=== PATIENT | female | born 1955 | race Two or more races ===

== ENCOUNTER 2020-10-24 09:00 | Outpatient (CLI) | payer MEDICARE, OTHER ==
[2020-10-24] MEDS ORDERED: LIDOCAINE SOLN 4% 50 ML BOTTLE ONE (09:27)
[2020-10-24] MEDS ORDERED: CLOTRIMAZOLE 1% 15 GM TUBE TP ONE (10:16)
[2020-10-24] MEDS ORDERED: UREA 10% -AHA 4% CREAM 57 GM TUBE ONE (10:16)
[2020-10-24] MEDS ORDERED: COLLAGENASE 5 GM TUBE UD TP ONE (10:17)
== END 2020-10-24 23:59 | disposition home health service (06) ==
LOC: WOU 09:00
PROVIDERS: ATTEND Podiatrist Foot & Ankle Surgery
DX: E11.621 Type 2 diabetes mellitus with foot ulcer (principal); L97.522 Non-pressure chronic ulcer of other part of left foot with fat layer exposed; Z79.84 Long term (current) use of oral hypoglycemic drugs; L03.116 Cellulitis of left lower limb; L84 Corns and callosities; M79.672 Pain in left foot; M79.671 Pain in right foot
CPT/HCPCS: 11042; 11045

== ENCOUNTER 2020-10-24 13:45 | Outpatient (CLI) | payer MEDICARE, OTHER | END 2020-10-24 23:59 | disposition home or self-care (01) | LOC: WOU 13:45 | PROVIDERS: ATTEND Radiology Diagnostic Radiology | DX: Z45.2 Encounter for adjustment and management of vascular access device (principal); L03.116 Cellulitis of left lower limb | CPT/HCPCS: 36569; C1751; 11042; 11045 ==

== ENCOUNTER 2020-10-31 10:00 | Outpatient (CLI) | payer MEDICARE, OTHER ==
[2020-10-31] MEDS ORDERED: LIDOCAINE SOLN 4% 50 ML BOTTLE ONE (10:24)
[2020-10-31] MEDS ORDERED: UREA 10% -AHA 4% CREAM 57 GM TUBE ONE ×2 (10:55→11:13)
[2020-10-31] MEDS ORDERED: CLOTRIMAZOLE 1% 15 GM TUBE TP ONE (10:55)
[2020-10-31] MEDS ORDERED: MUPIROCIN 2% CREAM 15 GM TUBE TP ONE (10:56)
[2020-10-31] MEDS ORDERED: HYDROCORTISONE 1% CREAM 28.35 GM TUBE TP ONE (11:13)
== END 2020-10-31 23:59 | disposition home health service (06) ==
LOC: WOU 10:00
PROVIDERS: ATTEND Podiatrist Foot & Ankle Surgery
DX: E11.621 Type 2 diabetes mellitus with foot ulcer (principal); L97.522 Non-pressure chronic ulcer of other part of left foot with fat layer exposed; L03.116 Cellulitis of left lower limb; L84 Corns and callosities; B35.1 Tinea unguium; M79.672 Pain in left foot; M79.671 Pain in right foot; Z79.84 Long term (current) use of oral hypoglycemic drugs; C52 Malignant neoplasm of vagina
CPT/HCPCS: 11042

== ENCOUNTER 2020-11-07 09:00 | Outpatient (CLI) | payer MEDICARE, OTHER ==
[2020-11-07] MEDS ORDERED: LIDOCAINE SOLN 4% 50 ML BOTTLE ONE (09:35)
== END 2020-11-07 23:59 | disposition home health service (06) ==
LOC: WOU 09:00
PROVIDERS: ATTEND Podiatrist Foot & Ankle Surgery
DX: E11.621 Type 2 diabetes mellitus with foot ulcer (principal); L97.422 Non-pressure chronic ulcer of left heel and midfoot with fat layer exposed; L03.116 Cellulitis of left lower limb; M79.672 Pain in left foot; M79.671 Pain in right foot; B35.1 Tinea unguium; L84 Corns and callosities; Z79.84 Long term (current) use of oral hypoglycemic drugs
CPT/HCPCS: 11042; 11045

== ENCOUNTER 2020-11-10 10:30 | Outpatient (CLI) | payer MEDICARE, OTHER | END 2020-11-10 23:59 | disposition home or self-care (01) | LOC: WOU 10:30 | PROVIDERS: ATTEND Podiatrist Foot & Ankle Surgery | DX: Z45.2 Encounter for adjustment and management of vascular access device (principal); T82.594A Other mechanical complication of infusion catheter, initial encounter; E11.621 Type 2 diabetes mellitus with foot ulcer; L97.422 Non-pressure chronic ulcer of left heel and midfoot with fat layer exposed; L03.116 Cellulitis of left lower limb; B35.1 Tinea unguium; L84 Corns and callosities; M79.672 Pain in left foot; M79.671 Pain in right foot | CPT/HCPCS: G0463 ==

== ENCOUNTER 2020-11-14 10:05 | Outpatient (CLI) | payer MEDICARE, OTHER | END 2020-11-14 23:59 | disposition home health service (06) | LOC: WOU 10:05 | PROVIDERS: ATTEND Podiatrist Foot & Ankle Surgery | DX: E11.621 Type 2 diabetes mellitus with foot ulcer (principal); L97.422 Non-pressure chronic ulcer of left heel and midfoot with fat layer exposed; M79.672 Pain in left foot; M79.671 Pain in right foot; L84 Corns and callosities; B35.1 Tinea unguium; Z79.84 Long term (current) use of oral hypoglycemic drugs | CPT/HCPCS: 11042 ==

== ENCOUNTER 2020-11-21 09:30 | Outpatient (CLI) | payer MEDICARE, OTHER ==
[2020-11-21] MEDS ORDERED: LIDOCAINE SOLN 4% 50 ML BOTTLE ONE (09:46)
[2020-11-21] MEDS ORDERED: UREA 10% -AHA 4% CREAM 57 GM TUBE ONE (10:12)
== END 2020-11-21 23:59 | disposition home health service (06) ==
LOC: WOU 09:30
PROVIDERS: ATTEND Podiatrist Foot & Ankle Surgery
DX: E11.621 Type 2 diabetes mellitus with foot ulcer (principal); L97.422 Non-pressure chronic ulcer of left heel and midfoot with fat layer exposed; L84 Corns and callosities; B35.1 Tinea unguium; Z79.84 Long term (current) use of oral hypoglycemic drugs
CPT/HCPCS: 11042; 11045

== ENCOUNTER 2020-11-26 10:05 | Outpatient (CLI) | payer MEDICARE, OTHER | END 2020-11-26 23:59 | disposition home health service (06) | LOC: WOU 10:05 | PROVIDERS: ATTEND Specialist | DX: E11.621 Type 2 diabetes mellitus with foot ulcer (principal); L97.422 Non-pressure chronic ulcer of left heel and midfoot with fat layer exposed; Z79.84 Long term (current) use of oral hypoglycemic drugs; L03.116 Cellulitis of left lower limb; L84 Corns and callosities; C15.9 Malignant neoplasm of esophagus, unspecified; M79.672 Pain in left foot; M79.671 Pain in right foot | CPT/HCPCS: G0463 ==

== ENCOUNTER → 2020-11-28 | Outpatient (CLI) | payer MEDICARE, OTHER | END | disposition home health service (06) | LOC: WOU 09:15 | PROVIDERS: ATTEND Podiatrist Foot & Ankle Surgery | DX: E11.621 Type 2 diabetes mellitus with foot ulcer (principal); L97.422 Non-pressure chronic ulcer of left heel and midfoot with fat layer exposed; L03.116 Cellulitis of left lower limb; S90.812A Abrasion, left foot, initial encounter; X58.XXXA Exposure to other specified factors, initial encounter; Y92.89 Other specified places as the place of occurrence of the external cause; B35.1 Tinea unguium; L84 Corns and callosities; Z79.84 Long term (current) use of oral hypoglycemic drugs | CPT/HCPCS: 11042 ==

== ENCOUNTER 2020-12-05 09:45 | Outpatient (CLI) | payer MEDICARE, OTHER ==
[2020-12-05] MEDS ORDERED: LIDOCAINE SOLN 4% 50 ML BOTTLE ONE (10:15)
[2020-12-05] MEDS ORDERED: HYDROCORTISONE 1% CREAM 28.35 GM TUBE TP ONE (10:51)
[2020-12-05 11:28] LABS: C-REACTIVE PROTEIN 1.8 mg/dL (0.0-0.9)
== END 2020-12-05 23:59 | disposition home health service (06) ==
LOC: WOU 09:45
PROVIDERS: ATTEND Podiatrist Foot & Ankle Surgery
DX: E11.621 Type 2 diabetes mellitus with foot ulcer (principal); L97.422 Non-pressure chronic ulcer of left heel and midfoot with fat layer exposed; L97.522 Non-pressure chronic ulcer of other part of left foot with fat layer exposed; E11.52 Type 2 diabetes mellitus with diabetic peripheral angiopathy with gangrene; Z79.4 Long term (current) use of insulin; S90.812A Abrasion, left foot, initial encounter; X58.XXXA Exposure to other specified factors, initial encounter; Y92.89 Other specified places as the place of occurrence of the external cause; L84 Corns and callosities
CPT/HCPCS: 11042; 36415; 82040-TC; 85652-TC; 86140-TC

== ENCOUNTER 2020-12-12 11:40 | Outpatient (CLI) | payer MEDICARE, OTHER | END 2020-12-12 23:59 | disposition home health service (06) | LOC: WOU 11:40 | PROVIDERS: ATTEND Podiatrist Foot & Ankle Surgery | DX: E11.621 Type 2 diabetes mellitus with foot ulcer (principal); L97.422 Non-pressure chronic ulcer of left heel and midfoot with fat layer exposed; L97.522 Non-pressure chronic ulcer of other part of left foot with fat layer exposed; E11.52 Type 2 diabetes mellitus with diabetic peripheral angiopathy with gangrene; I96 Gangrene, not elsewhere classified; Z79.84 Long term (current) use of oral hypoglycemic drugs; B35.1 Tinea unguium; L84 Corns and callosities | CPT/HCPCS: C5275; Q4117 ==

== ENCOUNTER 2020-12-19 08:40 | Outpatient (CLI) | payer MEDICARE, OTHER | END 2020-12-19 23:59 | disposition home health service (06) | LOC: WOU 08:40 | PROVIDERS: ATTEND Podiatrist Foot & Ankle Surgery | DX: E11.621 Type 2 diabetes mellitus with foot ulcer (principal); L97.522 Non-pressure chronic ulcer of other part of left foot with fat layer exposed; L97.422 Non-pressure chronic ulcer of left heel and midfoot with fat layer exposed; E11.52 Type 2 diabetes mellitus with diabetic peripheral angiopathy with gangrene; Z79.84 Long term (current) use of oral hypoglycemic drugs; B35.1 Tinea unguium; L84 Corns and callosities | CPT/HCPCS: 11042 ==

== ENCOUNTER 2020-12-26 11:31 | Outpatient (CLI) | payer MEDICARE, OTHER | END 2020-12-26 23:59 | disposition home health service (06) | LOC: WOU 11:31 | PROVIDERS: ATTEND Podiatrist Foot & Ankle Surgery | DX: E11.621 Type 2 diabetes mellitus with foot ulcer (principal); L97.422 Non-pressure chronic ulcer of left heel and midfoot with fat layer exposed; L97.522 Non-pressure chronic ulcer of other part of left foot with fat layer exposed; E11.52 Type 2 diabetes mellitus with diabetic peripheral angiopathy with gangrene; Z79.84 Long term (current) use of oral hypoglycemic drugs; L84 Corns and callosities; B35.1 Tinea unguium | CPT/HCPCS: 11042 ==

== ENCOUNTER 2020-12-31 11:50 | Outpatient (CLI) | payer MEDICARE, OTHER ==
[2020-12-31] MEDS ORDERED: SILVER SULFADIAZINE CREAM 25 GM TUBE ONE (11:58)
== END 2020-12-31 23:59 | disposition home health service (06) ==
LOC: WOU 11:50
PROVIDERS: ATTEND Specialist
DX: T23.231D Burn of second degree of multiple right fingers (nail), not including thumb, subsequent encounter (principal); T31.0 Burns involving less than 10% of body surface; V00-Y99 External causes of morbidity; E11.52 Type 2 diabetes mellitus with diabetic peripheral angiopathy with gangrene; B35.1 Tinea unguium; L84 Corns and callosities; Z79.84 Long term (current) use of oral hypoglycemic drugs
CPT/HCPCS: G0463

== ENCOUNTER 2021-01-02 11:00 | Outpatient (CLI) | payer MEDICARE, OTHER | END 2021-01-02 23:59 | disposition home health service (06) | LOC: WOU 11:00 | PROVIDERS: ATTEND Podiatrist Foot & Ankle Surgery | DX: E11.621 Type 2 diabetes mellitus with foot ulcer (principal); L97.422 Non-pressure chronic ulcer of left heel and midfoot with fat layer exposed; L97.522 Non-pressure chronic ulcer of other part of left foot with fat layer exposed; E11.52 Type 2 diabetes mellitus with diabetic peripheral angiopathy with gangrene; Z79.84 Long term (current) use of oral hypoglycemic drugs; B35.1 Tinea unguium; L84 Corns and callosities | CPT/HCPCS: 15275; Q4110 ==

== ENCOUNTER 2021-01-07 11:45 | Outpatient (CLI) | payer MEDICARE, OTHER | END 2021-01-07 23:59 | disposition home health service (06) | LOC: WOU 11:45 | PROVIDERS: ATTEND Specialist | DX: T23.221D Burn of second degree of single right finger (nail) except thumb, subsequent encounter (principal); T31.0 Burns involving less than 10% of body surface; V00-Y99 External causes of morbidity; E11.621 Type 2 diabetes mellitus with foot ulcer; L97.422 Non-pressure chronic ulcer of left heel and midfoot with fat layer exposed; E11.52 Type 2 diabetes mellitus with diabetic peripheral angiopathy with gangrene; Z79.84 Long term (current) use of oral hypoglycemic drugs; B35.1 Tinea unguium; L84 Corns and callosities | CPT/HCPCS: G0463 ==

== ENCOUNTER 2021-01-14 10:05 | Outpatient (CLI) | payer MEDICARE, OTHER | END 2021-01-14 23:59 | disposition home or self-care (01) | LOC: WOU 10:05 | PROVIDERS: ATTEND Specialist | DX: E11.621 Type 2 diabetes mellitus with foot ulcer (principal); L97.422 Non-pressure chronic ulcer of left heel and midfoot with fat layer exposed; E11.52 Type 2 diabetes mellitus with diabetic peripheral angiopathy with gangrene; B35.1 Tinea unguium; L84 Corns and callosities; Z79.84 Long term (current) use of oral hypoglycemic drugs | CPT/HCPCS: G0463 ==

== ENCOUNTER 2021-01-16 09:30 | Outpatient (CLI) | payer MEDICARE, OTHER | END 2021-01-16 23:59 | disposition home health service (06) | LOC: WOU 09:30 | PROVIDERS: ATTEND Podiatrist Foot & Ankle Surgery | DX: E11.621 Type 2 diabetes mellitus with foot ulcer (principal); L97.422 Non-pressure chronic ulcer of left heel and midfoot with fat layer exposed; L97.522 Non-pressure chronic ulcer of other part of left foot with fat layer exposed; E11.52 Type 2 diabetes mellitus with diabetic peripheral angiopathy with gangrene; Z79.84 Long term (current) use of oral hypoglycemic drugs; L84 Corns and callosities; B35.1 Tinea unguium | CPT/HCPCS: 11042 ==

== ENCOUNTER 2021-01-23 09:40 | Outpatient (CLI) | payer MEDICARE, OTHER | END 2021-01-23 23:59 | disposition home health service (06) | LOC: WOU 09:40 | PROVIDERS: ATTEND Podiatrist Foot & Ankle Surgery | DX: E11.621 Type 2 diabetes mellitus with foot ulcer (principal); L97.422 Non-pressure chronic ulcer of left heel and midfoot with fat layer exposed; L97.522 Non-pressure chronic ulcer of other part of left foot with fat layer exposed; E11.52 Type 2 diabetes mellitus with diabetic peripheral angiopathy with gangrene; I96 Gangrene, not elsewhere classified; L84 Corns and callosities; B35.1 Tinea unguium; M20.41 Other hammer toe(s) (acquired), right foot; Z79.84 Long term (current) use of oral hypoglycemic drugs | CPT/HCPCS: 11042 ==

== ENCOUNTER 2021-01-30 09:45 | Outpatient (CLI) | payer MEDICARE, OTHER | END 2021-01-30 23:59 | disposition home health service (06) | LOC: WOU 09:45 | PROVIDERS: ATTEND Podiatrist Foot & Ankle Surgery | DX: E11.621 Type 2 diabetes mellitus with foot ulcer (principal); L97.422 Non-pressure chronic ulcer of left heel and midfoot with fat layer exposed; L97.522 Non-pressure chronic ulcer of other part of left foot with fat layer exposed; E11.52 Type 2 diabetes mellitus with diabetic peripheral angiopathy with gangrene; B35.1 Tinea unguium; L84 Corns and callosities; M20.41 Other hammer toe(s) (acquired), right foot; Z79.84 Long term (current) use of oral hypoglycemic drugs | CPT/HCPCS: 15275; Q4196 ==

== ENCOUNTER 2021-02-06 09:40 | Outpatient (CLI) | payer MEDICARE, OTHER | END 2021-02-06 23:59 | disposition home health service (06) | LOC: WOU 09:40 | PROVIDERS: ATTEND Podiatrist Foot & Ankle Surgery | DX: E11.621 Type 2 diabetes mellitus with foot ulcer (principal); L97.422 Non-pressure chronic ulcer of left heel and midfoot with fat layer exposed; E11.52 Type 2 diabetes mellitus with diabetic peripheral angiopathy with gangrene; I96 Gangrene, not elsewhere classified; B35.1 Tinea unguium; L84 Corns and callosities; Z79.84 Long term (current) use of oral hypoglycemic drugs | CPT/HCPCS: 15275; Q4196 ==

== ENCOUNTER 2021-02-13 09:40 | Outpatient (CLI) | payer MEDICARE, OTHER | END 2021-02-13 23:59 | disposition home health service (06) | LOC: WOU 09:40 | PROVIDERS: ATTEND Podiatrist Foot & Ankle Surgery | DX: E11.621 Type 2 diabetes mellitus with foot ulcer (principal); L97.422 Non-pressure chronic ulcer of left heel and midfoot with fat layer exposed; L97.522 Non-pressure chronic ulcer of other part of left foot with fat layer exposed; L84 Corns and callosities; B35.1 Tinea unguium; M20.41 Other hammer toe(s) (acquired), right foot | CPT/HCPCS: 15275; Q4196 ==

== ENCOUNTER 2021-02-20 09:40 | Outpatient (CLI) | payer MEDICARE, OTHER | END 2021-02-20 23:59 | disposition home health service (06) | LOC: WOU 09:40 | PROVIDERS: ATTEND Podiatrist Foot & Ankle Surgery | DX: E11.621 Type 2 diabetes mellitus with foot ulcer (principal); L97.522 Non-pressure chronic ulcer of other part of left foot with fat layer exposed; Z79.84 Long term (current) use of oral hypoglycemic drugs; B35.1 Tinea unguium; M20.41 Other hammer toe(s) (acquired), right foot; L84 Corns and callosities | CPT/HCPCS: 17250; A6209 ==

== ENCOUNTER 2021-02-27 09:35 | Outpatient (CLI) | payer MEDICARE, OTHER | END 2021-02-27 23:59 | disposition home health service (06) | LOC: WOU 09:35 | PROVIDERS: ATTEND Podiatrist Foot & Ankle Surgery | DX: M79.81 Nontraumatic hematoma of soft tissue (principal); L84 Corns and callosities; E11.9 Type 2 diabetes mellitus without complications; Z79.84 Long term (current) use of oral hypoglycemic drugs; B35.1 Tinea unguium; M20.41 Other hammer toe(s) (acquired), right foot; Z86.31 Personal history of diabetic foot ulcer | CPT/HCPCS: 10140; A6209 ==

== ENCOUNTER 2021-03-06 09:40 | Outpatient (CLI) | payer MEDICARE, OTHER | END 2021-03-06 23:59 | disposition home health service (06) | LOC: WOU 09:40 | PROVIDERS: ATTEND Podiatrist Foot & Ankle Surgery | DX: L97.428 Non-pressure chronic ulcer of left heel and midfoot with other specified severity (principal); M79.81 Nontraumatic hematoma of soft tissue; B35.1 Tinea unguium; L84 Corns and callosities; E11.9 Type 2 diabetes mellitus without complications; Z79.84 Long term (current) use of oral hypoglycemic drugs; M20.41 Other hammer toe(s) (acquired), right foot | CPT/HCPCS: A6209; G0463 ==

== ENCOUNTER 2021-03-20 09:30 | Outpatient (CLI) | payer MEDICARE, OTHER | END 2021-03-20 23:59 | disposition home health service (06) | LOC: WOU 09:30 | PROVIDERS: ATTEND Podiatrist Foot & Ankle Surgery | DX: E11.621 Type 2 diabetes mellitus with foot ulcer (principal); L97.428 Non-pressure chronic ulcer of left heel and midfoot with other specified severity; L84 Corns and callosities; M20.41 Other hammer toe(s) (acquired), right foot; B35.1 Tinea unguium; Z79.84 Long term (current) use of oral hypoglycemic drugs | CPT/HCPCS: 11042 ==

== ENCOUNTER 2021-03-27 09:30 | Outpatient (CLI) | payer MEDICARE, OTHER | END 2021-03-27 23:59 | disposition home health service (06) | LOC: WOU 09:30 | PROVIDERS: ATTEND Podiatrist Foot & Ankle Surgery | DX: E11.621 Type 2 diabetes mellitus with foot ulcer (principal); L97.522 Non-pressure chronic ulcer of other part of left foot with fat layer exposed; L84 Corns and callosities; B35.1 Tinea unguium; M20.41 Other hammer toe(s) (acquired), right foot; Z79.84 Long term (current) use of oral hypoglycemic drugs; Z92.21 Personal history of antineoplastic chemotherapy | CPT/HCPCS: 11042 ==

== ENCOUNTER 2021-04-03 08:00 | Outpatient (CLI) | payer MEDICARE, OTHER ==
[2021-04-03] MEDS ORDERED: LIDOCAINE HCL/MPF 1% 30 ML VIAL IJ ONE (08:37)
== END 2021-04-03 23:59 | disposition home health service (06) ==
LOC: WOU 08:00
PROVIDERS: ATTEND Podiatrist Foot & Ankle Surgery
DX: E11.621 Type 2 diabetes mellitus with foot ulcer (principal); L97.522 Non-pressure chronic ulcer of other part of left foot with fat layer exposed; L84 Corns and callosities; M20.41 Other hammer toe(s) (acquired), right foot; M79.81 Nontraumatic hematoma of soft tissue; B35.1 Tinea unguium; S93.145D Subluxation of metatarsophalangeal joint of left lesser toe(s), subsequent encounter; X58.XXXD Exposure to other specified factors, subsequent encounter; Z79.84 Long term (current) use of oral hypoglycemic drugs
CPT/HCPCS: 11042; 28010; J3490

== ENCOUNTER 2021-04-10 11:00 | Outpatient (CLI) | payer MEDICARE, OTHER | END 2021-04-10 23:59 | disposition home health service (06) | LOC: WOU 11:00 | PROVIDERS: ATTEND Podiatrist Foot & Ankle Surgery | DX: E11.621 Type 2 diabetes mellitus with foot ulcer (principal); L97.522 Non-pressure chronic ulcer of other part of left foot with fat layer exposed; S93.145D Subluxation of metatarsophalangeal joint of left lesser toe(s), subsequent encounter; X58.XXXD Exposure to other specified factors, subsequent encounter; B35.1 Tinea unguium; L84 Corns and callosities; M20.41 Other hammer toe(s) (acquired), right foot; M79.81 Nontraumatic hematoma of soft tissue; Z79.84 Long term (current) use of oral hypoglycemic drugs | CPT/HCPCS: 11042; A6197 ==

== ENCOUNTER 2021-04-17 10:30 | Outpatient (CLI) | payer MEDICARE, OTHER | END 2021-04-17 23:59 | disposition home health service (06) | LOC: WOU 10:30 | PROVIDERS: ATTEND Podiatrist Foot & Ankle Surgery | DX: E11.621 Type 2 diabetes mellitus with foot ulcer (principal); L97.523 Non-pressure chronic ulcer of other part of left foot with necrosis of muscle; B35.1 Tinea unguium; L84 Corns and callosities; M20.41 Other hammer toe(s) (acquired), right foot; M79.81 Nontraumatic hematoma of soft tissue; Z79.4 Long term (current) use of insulin | CPT/HCPCS: 11043; 87070-TC; 87075-TC ==

== ENCOUNTER 2021-04-24 10:30 | Outpatient (CLI) | payer MEDICARE, OTHER | END 2021-04-24 23:59 | disposition home health service (06) | LOC: WOU 10:30 | PROVIDERS: ATTEND Podiatrist Foot & Ankle Surgery | DX: E11.621 Type 2 diabetes mellitus with foot ulcer (principal); L97.522 Non-pressure chronic ulcer of other part of left foot with fat layer exposed; L03.116 Cellulitis of left lower limb; L84 Corns and callosities; B35.1 Tinea unguium; M20.41 Other hammer toe(s) (acquired), right foot; S93.145D Subluxation of metatarsophalangeal joint of left lesser toe(s), subsequent encounter; X58.XXXD Exposure to other specified factors, subsequent encounter; Z79.84 Long term (current) use of oral hypoglycemic drugs | CPT/HCPCS: 11042 ==

== ENCOUNTER 2021-05-01 10:30 | Outpatient (CLI) | payer MEDICARE, OTHER | END 2021-05-01 23:59 | disposition home health service (06) | LOC: WOU 10:30 | PROVIDERS: ATTEND Podiatrist Foot & Ankle Surgery | DX: E11.621 Type 2 diabetes mellitus with foot ulcer (principal); L97.422 Non-pressure chronic ulcer of left heel and midfoot with fat layer exposed; Z88.1 Allergy status to other antibiotic agents; Z88.0 Allergy status to penicillin; Z92.21 Personal history of antineoplastic chemotherapy; L84 Corns and callosities; M20.41 Other hammer toe(s) (acquired), right foot; Z86.31 Personal history of diabetic foot ulcer; M79.81 Nontraumatic hematoma of soft tissue; M24.875 Other specific joint derangements left foot, not elsewhere classified; E11.42 Type 2 diabetes mellitus with diabetic polyneuropathy | CPT/HCPCS: 11042; A6197 ==

== ENCOUNTER 2021-05-08 10:35 | Outpatient (CLI) | payer MEDICARE, OTHER | END 2021-05-08 23:59 | disposition home health service (06) | LOC: WOU 10:35 | PROVIDERS: ATTEND Podiatrist Foot & Ankle Surgery | DX: E11.621 Type 2 diabetes mellitus with foot ulcer (principal); L97.422 Non-pressure chronic ulcer of left heel and midfoot with fat layer exposed; Z86.73 Personal history of transient ischemic attack (TIA), and cerebral infarction without residual deficits; Z85.01 Personal history of malignant neoplasm of esophagus; Z92.21 Personal history of antineoplastic chemotherapy; L84 Corns and callosities; E11.40 Type 2 diabetes mellitus with diabetic neuropathy, unspecified; Z79.84 Long term (current) use of oral hypoglycemic drugs | CPT/HCPCS: 11042 ==

== ENCOUNTER 2021-05-15 10:35 | Outpatient (CLI) | payer MEDICARE, OTHER | END 2021-05-15 23:59 | disposition home health service (06) | LOC: WOU 10:35 | PROVIDERS: ATTEND Podiatrist Foot & Ankle Surgery | DX: E11.621 Type 2 diabetes mellitus with foot ulcer (principal); L97.422 Non-pressure chronic ulcer of left heel and midfoot with fat layer exposed; B35.1 Tinea unguium; E11.40 Type 2 diabetes mellitus with diabetic neuropathy, unspecified; M20.41 Other hammer toe(s) (acquired), right foot; Z86.73 Personal history of transient ischemic attack (TIA), and cerebral infarction without residual deficits; Z85.01 Personal history of malignant neoplasm of esophagus; Z92.21 Personal history of antineoplastic chemotherapy; M24.475 Recurrent dislocation, left foot; Z79.84 Long term (current) use of oral hypoglycemic drugs; Z86.31 Personal history of diabetic foot ulcer | CPT/HCPCS: 11042 ==

== ENCOUNTER 2021-05-22 10:30 | Outpatient (CLI) | payer MEDICARE, OTHER ==
[2021-05-22] MEDS ORDERED: LIDOCAINE SOLN 4% 50 ML BOTTLE ONE (10:42)
== END 2021-05-22 23:59 | disposition home health service (06) ==
LOC: WOU 10:30
PROVIDERS: ATTEND Podiatrist Foot & Ankle Surgery
DX: E11.621 Type 2 diabetes mellitus with foot ulcer (principal); L97.522 Non-pressure chronic ulcer of other part of left foot with fat layer exposed; L84 Corns and callosities; B35.1 Tinea unguium; M20.41 Other hammer toe(s) (acquired), right foot; Z79.84 Long term (current) use of oral hypoglycemic drugs
CPT/HCPCS: 11042

== ENCOUNTER 2021-05-29 10:30 | Outpatient (CLI) | payer MEDICARE, OTHER | END 2021-05-29 23:59 | disposition home health service (06) | LOC: WOU 10:30 | PROVIDERS: ATTEND Podiatrist Foot & Ankle Surgery | DX: E11.621 Type 2 diabetes mellitus with foot ulcer (principal); L97.522 Non-pressure chronic ulcer of other part of left foot with fat layer exposed; B35.1 Tinea unguium; L84 Corns and callosities; M20.41 Other hammer toe(s) (acquired), right foot; Z79.84 Long term (current) use of oral hypoglycemic drugs | CPT/HCPCS: 11042; A6197 ==

== ENCOUNTER 2021-06-05 10:30 | Outpatient (CLI) | payer MEDICARE, OTHER ==
[2021-06-05] MEDS ORDERED: SILVER SULFADIAZINE CREAM 25 GM TUBE ONE (11:25)
== END 2021-06-05 23:59 | disposition home health service (06) ==
LOC: WOU 10:30
PROVIDERS: ATTEND Podiatrist Foot & Ankle Surgery
DX: E11.621 Type 2 diabetes mellitus with foot ulcer (principal); L97.522 Non-pressure chronic ulcer of other part of left foot with fat layer exposed; L84 Corns and callosities; B35.1 Tinea unguium; M20.41 Other hammer toe(s) (acquired), right foot; Z79.84 Long term (current) use of oral hypoglycemic drugs
CPT/HCPCS: 11042; A6197

== ENCOUNTER 2021-06-12 10:30 | Outpatient (CLI) | payer MEDICARE, OTHER | END 2021-06-12 23:59 | disposition home health service (06) | LOC: WOU 10:30 | PROVIDERS: ATTEND Podiatrist Foot & Ankle Surgery | DX: E11.621 Type 2 diabetes mellitus with foot ulcer (principal); L97.522 Non-pressure chronic ulcer of other part of left foot with fat layer exposed; L84 Corns and callosities; B35.1 Tinea unguium; M20.41 Other hammer toe(s) (acquired), right foot; Z79.84 Long term (current) use of oral hypoglycemic drugs; Z92.21 Personal history of antineoplastic chemotherapy | CPT/HCPCS: 11042; A6197 ==

== ENCOUNTER 2021-06-19 08:40 | Outpatient (CLI) | payer MEDICARE, OTHER | END 2021-06-19 23:59 | disposition home health service (06) | LOC: WOU 08:40 | PROVIDERS: ATTEND Podiatrist Foot & Ankle Surgery | DX: E11.621 Type 2 diabetes mellitus with foot ulcer (principal); L97.522 Non-pressure chronic ulcer of other part of left foot with fat layer exposed; Z79.84 Long term (current) use of oral hypoglycemic drugs; B35.1 Tinea unguium; M20.41 Other hammer toe(s) (acquired), right foot; L84 Corns and callosities; Z92.21 Personal history of antineoplastic chemotherapy | CPT/HCPCS: 11042; A6197 ==

== ENCOUNTER 2021-06-26 10:30 | Outpatient (CLI) | payer MEDICARE, OTHER | END 2021-06-26 23:59 | disposition home health service (06) | LOC: WOU 10:30 | PROVIDERS: ATTEND Podiatrist Foot & Ankle Surgery | DX: E11.621 Type 2 diabetes mellitus with foot ulcer (principal); L97.522 Non-pressure chronic ulcer of other part of left foot with fat layer exposed; L84 Corns and callosities; B35.1 Tinea unguium; M20.41 Other hammer toe(s) (acquired), right foot; Z79.84 Long term (current) use of oral hypoglycemic drugs | CPT/HCPCS: 11042 ==

== ENCOUNTER 2021-07-03 10:30 | Outpatient (CLI) | payer MEDICARE, OTHER | END 2021-07-03 23:59 | disposition home health service (06) | LOC: WOU 10:30 | PROVIDERS: ATTEND Podiatrist Foot & Ankle Surgery | DX: E11.621 Type 2 diabetes mellitus with foot ulcer (principal); L97.522 Non-pressure chronic ulcer of other part of left foot with fat layer exposed; Z79.84 Long term (current) use of oral hypoglycemic drugs; M20.41 Other hammer toe(s) (acquired), right foot; L84 Corns and callosities; B35.1 Tinea unguium | CPT/HCPCS: 11042 ==

== ENCOUNTER 2021-07-10 10:30 | Outpatient (CLI) | payer MEDICARE, OTHER | END 2021-07-10 23:59 | disposition home health service (06) | LOC: WOU 10:30 | PROVIDERS: ATTEND Podiatrist Foot & Ankle Surgery | DX: E11.621 Type 2 diabetes mellitus with foot ulcer (principal); L97.522 Non-pressure chronic ulcer of other part of left foot with fat layer exposed; L84 Corns and callosities; B35.1 Tinea unguium; M20.41 Other hammer toe(s) (acquired), right foot; Z79.84 Long term (current) use of oral hypoglycemic drugs | CPT/HCPCS: 11042 ==

== ENCOUNTER 2021-07-17 10:30 | Outpatient (CLI) | payer MEDICARE, OTHER | END 2021-07-17 23:59 | disposition home health service (06) | LOC: WOU 10:30 | PROVIDERS: ATTEND Podiatrist Foot & Ankle Surgery | DX: E11.621 Type 2 diabetes mellitus with foot ulcer (principal); L97.522 Non-pressure chronic ulcer of other part of left foot with fat layer exposed; Z79.84 Long term (current) use of oral hypoglycemic drugs; B35.1 Tinea unguium; M20.41 Other hammer toe(s) (acquired), right foot; L84 Corns and callosities | CPT/HCPCS: 11042 ==

== ENCOUNTER 2021-07-24 10:30 | Outpatient (CLI) | payer MEDICARE, OTHER | END 2021-07-24 23:59 | disposition home health service (06) | LOC: WOU 10:30 | PROVIDERS: ATTEND Podiatrist Foot & Ankle Surgery | DX: E11.621 Type 2 diabetes mellitus with foot ulcer (principal); L97.522 Non-pressure chronic ulcer of other part of left foot with fat layer exposed; L84 Corns and callosities; B35.1 Tinea unguium; Z79.84 Long term (current) use of oral hypoglycemic drugs; M20.41 Other hammer toe(s) (acquired), right foot; S93.145D Subluxation of metatarsophalangeal joint of left lesser toe(s), subsequent encounter; X58.XXXD Exposure to other specified factors, subsequent encounter | CPT/HCPCS: 11042 ==

== ENCOUNTER 2021-07-27 15:38 | Outpatient (CLI) | payer MEDICARE, OTHER | END 2021-07-27 23:59 | disposition home or self-care (01) | LOC: RAD 15:38 | PROVIDERS: ATTEND Podiatrist Foot & Ankle Surgery | DX: M20.12 Hallux valgus (acquired), left foot (principal); M25.775 Osteophyte, left foot; M77.32 Calcaneal spur, left foot; M76.62 Achilles tendinitis, left leg; L97.529 Non-pressure chronic ulcer of other part of left foot with unspecified severity | CPT/HCPCS: 73630-TC ==

== ENCOUNTER → 2021-07-31 | Outpatient (CLI) | payer MEDICARE, OTHER | END | disposition home health service (06) | LOC: WOU 10:30 | PROVIDERS: ATTEND Podiatrist Foot & Ankle Surgery | DX: E11.621 Type 2 diabetes mellitus with foot ulcer (principal); L97.522 Non-pressure chronic ulcer of other part of left foot with fat layer exposed; L84 Corns and callosities; M20.41 Other hammer toe(s) (acquired), right foot; B35.1 Tinea unguium; Z79.84 Long term (current) use of oral hypoglycemic drugs | CPT/HCPCS: 11042 ==

== ENCOUNTER 2021-08-07 10:30 | Outpatient (CLI) | payer MEDICARE, OTHER | END 2021-08-07 23:59 | disposition home or self-care (01) | LOC: WOU 10:30 | PROVIDERS: ATTEND Podiatrist Foot & Ankle Surgery | DX: E11.9 Type 2 diabetes mellitus without complications (principal); L84 Corns and callosities; B35.1 Tinea unguium; M20.41 Other hammer toe(s) (acquired), right foot; Z79.84 Long term (current) use of oral hypoglycemic drugs | CPT/HCPCS: G0463 ==

== ENCOUNTER 2021-08-21 10:35 | Outpatient (CLI) | payer MEDICARE, OTHER | END 2021-08-21 23:59 | disposition home or self-care (01) | LOC: WOU 10:35 | PROVIDERS: ATTEND Podiatrist Foot & Ankle Surgery | DX: Z09 Encounter for follow-up examination after completed treatment for conditions other than malignant neoplasm (principal); Z86.31 Personal history of diabetic foot ulcer; L84 Corns and callosities; M20.41 Other hammer toe(s) (acquired), right foot; B35.1 Tinea unguium; Z79.84 Long term (current) use of oral hypoglycemic drugs | CPT/HCPCS: G0463 ==

== ENCOUNTER 2021-08-28 10:37 | Outpatient (CLI) | payer MEDICARE, OTHER | END 2021-08-28 23:59 | disposition home or self-care (01) | LOC: WOU 10:37 | PROVIDERS: ATTEND Podiatrist Foot & Ankle Surgery | DX: Z09 Encounter for follow-up examination after completed treatment for conditions other than malignant neoplasm (principal); M20.41 Other hammer toe(s) (acquired), right foot; L84 Corns and callosities; B35.1 Tinea unguium; Z86.31 Personal history of diabetic foot ulcer | CPT/HCPCS: G0463 ==

== ENCOUNTER 2021-09-29 10:40 | Outpatient (CLI) | payer MEDICARE, OTHER | END 2021-09-29 23:59 | disposition home or self-care (01) | LOC: WOU 10:40 | PROVIDERS: ATTEND Podiatrist Foot & Ankle Surgery | DX: Z09 Encounter for follow-up examination after completed treatment for conditions other than malignant neoplasm (principal); E11.42 Type 2 diabetes mellitus with diabetic polyneuropathy; Z86.31 Personal history of diabetic foot ulcer; L84 Corns and callosities; M20.42 Other hammer toe(s) (acquired), left foot; B35.1 Tinea unguium; Z79.84 Long term (current) use of oral hypoglycemic drugs | CPT/HCPCS: G0463 ==

== ENCOUNTER 2021-12-01 10:05 | Outpatient (CLI) | payer MEDICARE, OTHER | END 2021-12-01 23:59 | disposition home or self-care (01) | LOC: WOU 10:05 | PROVIDERS: ATTEND Podiatrist Foot & Ankle Surgery | DX: Z09 Encounter for follow-up examination after completed treatment for conditions other than malignant neoplasm (principal); L84 Corns and callosities; B35.1 Tinea unguium; E11.42 Type 2 diabetes mellitus with diabetic polyneuropathy; M20.42 Other hammer toe(s) (acquired), left foot; Z86.31 Personal history of diabetic foot ulcer | CPT/HCPCS: G0463 ==

== ENCOUNTER 2022-02-02 10:00 | Outpatient (CLI) | payer MEDICARE, OTHER | END 2022-02-02 23:59 | disposition home or self-care (01) | LOC: WOU 10:00 | PROVIDERS: ATTEND Podiatrist Foot & Ankle Surgery | DX: L60.3 Nail dystrophy (principal); M20.42 Other hammer toe(s) (acquired), left foot; E11.42 Type 2 diabetes mellitus with diabetic polyneuropathy; B35.1 Tinea unguium; Z86.31 Personal history of diabetic foot ulcer | CPT/HCPCS: G0463 ==

== ENCOUNTER 2022-04-20 10:10 | Outpatient (CLI) | payer MEDICARE, OTHER | END 2022-04-20 23:59 | disposition home or self-care (01) | LOC: WOU 10:10 | PROVIDERS: ATTEND Podiatrist Foot & Ankle Surgery | DX: Z09 Encounter for follow-up examination after completed treatment for conditions other than malignant neoplasm (principal); Z86.31 Personal history of diabetic foot ulcer; E11.42 Type 2 diabetes mellitus with diabetic polyneuropathy; M20.42 Other hammer toe(s) (acquired), left foot; L84 Corns and callosities; B35.1 Tinea unguium; L60.3 Nail dystrophy; Z79.84 Long term (current) use of oral hypoglycemic drugs | CPT/HCPCS: G0463 ==

== ENCOUNTER 2022-06-22 10:00 | Outpatient (CLI) | payer MEDICARE, OTHER | END 2022-06-22 23:59 | disposition home health service (06) | LOC: WOU 10:00 | PROVIDERS: ATTEND Podiatrist Foot & Ankle Surgery | DX: S80.822A Blister (nonthermal), left lower leg, initial encounter (principal); S80.862A Insect bite (nonvenomous), left lower leg, initial encounter; W57.XXXA Bitten or stung by nonvenomous insect and other nonvenomous arthropods, initial encounter; Y92.89 Other specified places as the place of occurrence of the external cause; Z79.84 Long term (current) use of oral hypoglycemic drugs; E11.42 Type 2 diabetes mellitus with diabetic polyneuropathy; M20.42 Other hammer toe(s) (acquired), left foot; M20.41 Other hammer toe(s) (acquired), right foot; L84 Corns and callosities; B35.1 Tinea unguium; L60.3 Nail dystrophy; Z86.31 Personal history of diabetic foot ulcer | CPT/HCPCS: 87077; 87075; 87070; 87186 ×2; G0463 ==

== ENCOUNTER 2022-06-29 10:10 | Outpatient (CLI) | payer MEDICARE, OTHER ==
[2022-06-29] MEDS ORDERED: MUPIROCIN 2% CREAM 15 GM TUBE TP ONE (10:35)
== END 2022-06-29 23:59 | disposition home health service (06) ==
LOC: WOU 10:10
PROVIDERS: ATTEND Podiatrist Foot & Ankle Surgery
DX: E11.42 Type 2 diabetes mellitus with diabetic polyneuropathy (principal); Z79.84 Long term (current) use of oral hypoglycemic drugs; L84 Corns and callosities; B35.1 Tinea unguium; M20.42 Other hammer toe(s) (acquired), left foot; M20.41 Other hammer toe(s) (acquired), right foot; L60.3 Nail dystrophy
CPT/HCPCS: G0463

== ENCOUNTER 2022-07-13 10:00 | Outpatient (CLI) | payer MEDICARE, OTHER | END 2022-07-13 23:59 | disposition home or self-care (01) | LOC: WOU 10:00 | PROVIDERS: ATTEND Podiatrist Foot & Ankle Surgery | DX: S80.862D Insect bite (nonvenomous), left lower leg, subsequent encounter (principal); W57.XXXD Bitten or stung by nonvenomous insect and other nonvenomous arthropods, subsequent encounter; E11.42 Type 2 diabetes mellitus with diabetic polyneuropathy; Z79.84 Long term (current) use of oral hypoglycemic drugs; L84 Corns and callosities; B35.1 Tinea unguium; M20.42 Other hammer toe(s) (acquired), left foot; M20.41 Other hammer toe(s) (acquired), right foot; L60.3 Nail dystrophy | CPT/HCPCS: G0463 ==

== ENCOUNTER 2022-09-21 09:32 | Outpatient (CLI) | payer MEDICARE, OTHER | END 2022-09-21 23:59 | disposition home health service (06) | LOC: WOU 09:32 | PROVIDERS: ATTEND Podiatrist Foot & Ankle Surgery | DX: Z09 Encounter for follow-up examination after completed treatment for conditions other than malignant neoplasm (principal); B35.1 Tinea unguium; E11.42 Type 2 diabetes mellitus with diabetic polyneuropathy; L84 Corns and callosities; M20.42 Other hammer toe(s) (acquired), left foot; M20.41 Other hammer toe(s) (acquired), right foot; L60.3 Nail dystrophy; Z86.31 Personal history of diabetic foot ulcer; Z79.84 Long term (current) use of oral hypoglycemic drugs | CPT/HCPCS: G0463 ==

== ENCOUNTER 2022-10-06 12:17 | Outpatient (CLI) | payer MEDICARE, OTHER | END 2022-10-06 23:59 | disposition home or self-care (01) | LOC: RAD 12:17 | PROVIDERS: ATTEND Podiatrist Foot & Ankle Surgery | DX: M19.072 Primary osteoarthritis, left ankle and foot (principal); M21.612 Bunion of left foot; M77.32 Calcaneal spur, left foot; M21.962 Unspecified acquired deformity of left lower leg | CPT/HCPCS: 73630-TC ==

== ENCOUNTER 2022-11-23 13:59 | Outpatient (CLI) | payer MEDICARE, OTHER | END 2022-11-23 23:59 | disposition home health service (06) | LOC: WOU 13:59 | PROVIDERS: ATTEND Podiatrist Foot & Ankle Surgery | DX: M20.12 Hallux valgus (acquired), left foot (principal); L60.2 Onychogryphosis; E11.42 Type 2 diabetes mellitus with diabetic polyneuropathy; Z79.84 Long term (current) use of oral hypoglycemic drugs; L84 Corns and callosities; M20.42 Other hammer toe(s) (acquired), left foot; L60.3 Nail dystrophy | CPT/HCPCS: G0463 ==

== ENCOUNTER 2023-01-11 15:37 | Emergency (ER) | payer MEDICARE, OTHER ==
[~2023-01-11] VITALS: Ht 152.4 cm; Wt 68.0 kg
[2023-01-11 15:48] VITALS: BP 135/74
--- NOTE | 2023-01-11 15:55 | NUR ---
CALLED TO TRIAGE,NO ANSWER
== END 2023-01-11 16:54 | disposition home or self-care (01) ==
LOC: ER 15:40
DX: M21.612 Bunion of left foot (principal); I10 Essential (primary) hypertension; E11.9 Type 2 diabetes mellitus without complications; Z90.49 Acquired absence of other specified parts of digestive tract; Z88.0 Allergy status to penicillin; Z88.1 Allergy status to other antibiotic agents
CPT/HCPCS: 73630-TC

== ENCOUNTER 2023-01-18 09:43 | Outpatient (CLI) | payer MEDICARE, OTHER | END 2023-01-18 23:59 | disposition home or self-care (01) | LOC: WOU 09:43 | PROVIDERS: ATTEND Podiatrist Foot & Ankle Surgery | DX: Z09 Encounter for follow-up examination after completed treatment for conditions other than malignant neoplasm (principal); E11.42 Type 2 diabetes mellitus with diabetic polyneuropathy; Z79.84 Long term (current) use of oral hypoglycemic drugs; L84 Corns and callosities; B35.1 Tinea unguium; M20.42 Other hammer toe(s) (acquired), left foot; M20.41 Other hammer toe(s) (acquired), right foot; M20.12 Hallux valgus (acquired), left foot; L60.3 Nail dystrophy; Z86.31 Personal history of diabetic foot ulcer | CPT/HCPCS: G0463 ==